=== PATIENT | male | born 1995 | race Caucasian/White ===

== ENCOUNTER 2017-08-10 08:39 | Emergency (ER) | END 2017-08-10 13:14 | disposition home or self-care (01) ==

== ENCOUNTER 2017-08-14 09:29 | Emergency (ER) | END 2017-08-14 11:20 | disposition home or self-care (01) ==

== ENCOUNTER 2017-08-31 13:57 | Emergency (ER) | END 2017-08-31 16:01 | disposition home or self-care (01) ==

== ENCOUNTER 2017-09-01 07:10 | Emergency (ER) | END 2017-09-01 11:04 | disposition home or self-care (01) ==

== ENCOUNTER 2017-09-02 11:16 | Observation (INO) | END 2017-09-03 15:30 | disposition hospice, home (50) ==